=== PATIENT | male | born 1990 | race Caucasian/White ===

== ENCOUNTER → 2019-05-22 16:27 | Emergency (ER) | payer OTHER ==
--- NOTE | 2019-05-22 18:05 | ED ---
Throat Pain/Nasal Congestion - HPI Summary HPI Summary: 29-year-old male presents with sore throat today. He has been having occasional sinus congestion and postnasal drip. He also has a history of acid reflux. He denies any cough. Did not eat anything different. He has history of anxiety and feels like it may be related. He states that his symptoms and his pain are resolved now. Denies any sore throat. He states he does not like to take medications. Has no medical conditions. No difficulty breathing. No chest pain. - History of Current Complaint Chief Complaint: EDThroatPain Time Seen by Provider: 05/22/19 17:17 - Allergies/Home Medications Allergies/Adverse Reactions: Allergies Allergy/AdvReac Type Severity Reaction Status Date / Time amoxicillin Allergy Unknown Verified 05/22/19 16:42 Reaction Details bee venom protein (honey bee) Allergy Anaphylatic Verified 05/22/19 16:42 Shock PMH/Surg Hx/FS Hx/Imm Hx Endocrine/Hematology History: Denies: Hx Anticoagulant Therapy Respiratory History: Denies: Hx Asthma Infectious Disease History: No Infectious Disease History: Denies: Traveled Outside the [place] in Last 30 Days - Family History Known Family History: Positive: Non-Contributory - Social History Alcohol Use: Occasionally Substance Use Type: Reports: None Review of Systems Negative: Fever Positive: Sore Throat, Nasal Discharge Negative: Chest Pain Negative: Shortness Of Breath All Other Systems Reviewed And Are Negative: Yes Physical Exam Triage Information Reviewed: Yes Vital Signs On Initial Exam: Initial Vitals Temp Pulse Resp BP Pulse Ox 97.9 F 89 16 147/91 98 05/22/19 16:38 05/22/19 16:38 05/22/19 16:38 05/22/19 16:38 05/22/19 16:38 Vital Signs Reviewed: Yes Appearance: Positive: Well-Appearing Skin: Positive: Warm, Dry Head/Face: Positive: Normal Head/Face Inspection Eyes: Positive: Normal, EOMI, AGNIESZKA, Conjunctiva Clear ENT: Positive: Normal ENT inspection, Pharynx normal, TMs normal Neck: Positive: Supple, Nontender, No Lymphadenopathy Respiratory/Lung Sounds: Positive: Clear to Auscultation, Breath Sounds Present Cardiovascular: Positive: Normal, RRR Abdomen Description: Positive: Nontender, Soft Bowel Sounds: Positive: Present Musculoskeletal: Positive: Normal Neurological: Positive: Normal Psychiatric: Positive: Normal Diagnostics - Vital Signs Vital Signs Temp Pulse Resp BP Pulse Ox 05/22/19 16:38 97.9 F 89 16 147/91 98 - Laboratory Lab Statement: Any lab studies that have been ordered have been reviewed, and results considered in the medical decision making process. EENT Course/Dx - Course Course Of Treatment: 29-year-old male presents with sore throat today. He has been having occasional sinus congestion and postnasal drip. He also has a history of acid reflux. He denies any cough. Did not eat anything different. He has history of anxiety and feels like it may be related. He states that his symptoms and his pain are resolved now. Denies any sore throat. He states he does not like to take medications. Has no medical conditions. No difficulty breathing. No chest pain. On exam pharynx normal. Lungs clear to auscultation. Discuss may be viral anxiety or due to GERD. Told to take Tums for symptoms as does not want other medications. Told to establish care with primary. Patient understands agrees plan. - Differential Diagnoses Differential Diagnoses: Pharyngitis, Sinusitis, Tonsilitis - Diagnoses Provider Diagnoses: Sore throat Discharge - Sign-Out/Discharge Documenting (check all that apply): Patient Departure Patient Received Moderate/Deep Sedation with Procedure: No - Discharge Plan Condition: Good Disposition: HOME Referrals: [facility] [Outside] Additional Instructions: take Benadryl every 6 hours as needed for allergy symptoms take Tums for acid reflex symptoms Return to ED if develop any new or worsening symptoms - Billing Disposition and Condition Condition: GOOD Disposition: Home
[2019-05-22 18:43] VITALS: BP 117/64
== END | disposition home or self-care (01) ==
LOC: ED 16:27
DX: J02.9 Acute pharyngitis, unspecified (principal); R09.81 Nasal congestion; R09.82 Postnasal drip; Z88.0 Allergy status to penicillin; Z91.030 Bee allergy status
CPT/HCPCS: 99281